=== PATIENT | female | born 1955 | race Caucasian/White ===

== ENCOUNTER 2017-03-08 08:38 | Emergency (ER) | payer BC, MEDICARE ==
[~2017-03-08] VITALS: Ht 157.5 cm; Wt 53.2 kg
[~2017-03-08 08:38] MED LIST: ALBU6.7H INH; ALPR.5 PO; ATOR20TA PO; AZIT250T74 PO; CEFU1TAB43 PO; DEMA10TA PO; DIGO0.12 PO; DULE200A INH; DUONI NEB; ECOT81TA2 PO; LISI2.5T55 PO; MAGN400T PO; METO25CR PO; MONT10TA2 PO; PRED20 PO; SPIR25 PO
[2017-03-08 08:42] VITALS: BP 119/68; PULSE 84; RESP 16; TEMP 97.9; O2SAT 94
[2017-03-08] MEDS ORDERED: LISI2.5T3 PO (09:10)
[2017-03-08] MEDS ORDERED: ALBU6.7H INH (09:10)
[2017-03-08] MEDS ORDERED: MAGN400T2 PO (09:10)
[2017-03-08] MEDS ORDERED: SPIR25TA PO (09:10)
[2017-03-08] MEDS ORDERED: PRED1 PO (09:10)
[2017-03-08] MEDS ORDERED: THEO400T2 PO (09:10)
[2017-03-08] MEDS ORDERED: ATOR20TA15 PO (09:10)
[2017-03-08] MEDS ORDERED: DIGO0.12 PO (09:10)
[2017-03-08] MEDS ORDERED: ALPR0.5T3 PO (09:10)
[2017-03-08] MEDS ORDERED: TORS10TA2 PO (09:10)
[2017-03-08] MEDS ORDERED: MONT10TA2 PO (09:10)
[2017-03-08] MEDS ORDERED: METO50TA11 PO (09:10)
[2017-03-08] MEDS ORDERED: DULE100A INH (09:10)
[2017-03-08] MEDS ORDERED: TETANUS/DIPHTHERIA TOXOID ADULT 0.5 ML VIAL IM ONE (09:15)
[2017-03-08] MEDS ORDERED: LIDOCAINE 2%/EPINEPHrine 1:100,000 30ML MDV INFIL ONE (09:15)
--- NOTE | 2017-03-08 09:19 | PD ---
HPI Chief Complaint: Injury Time Seen by Provider: 09:12 Travel History International Travel<30 days: No Contact w/Intl Traveler<30days: No Traveled to known affect area: No History of Present Illness HPI Patient reports attempting to use the restroom this morning when she slipped and fell. Unsure of the exact mechanism. Denies any head trauma. Patient thinks that her right leg extended behind her during the fall. Reports right ankle pain with a right knee laceration. Unable to recall tetanus. Reports that she is able to bear weight. PFSH Past Medical History Hx Anticoagulant Therapy: Yes (asa 81mg) Anemia: Yes Arthritis: Yes (RHEUMATOID) Asthma: No Autoimmune Disease: No Blood Disorders: No Anxiety: Yes Depression: No Heart Rhythm Problems: Yes Cancer: No Cardiomyopathy: Yes (VIRAL) Cardiovascular Problems: Yes (htn on meds, [place] x 4 , pacemaker & defib) High Cholesterol: Yes Chemotherapy: No Chest Pain: Yes Congestive Heart Failure: Yes COPD: Yes (2L NC) Coronary Artery Disease: Yes Diabetes: No Diminished Hearing: No Endocrine: No Gastrointestinal Disorders: Yes GERD: No Glaucoma: No Genitourinary: Yes Hepatitis: No Hiatal Hernia: No Heparin Induced Thrombocytopen: No Hypertension: Yes Immune Disorder: Yes Implanted Vascular Access Dvce: No Kidney Stones: No Medical other: Yes (ANEMIC, ARTHRITIS) Musculoskeletal: Yes Neurologic: No Psychiatric: Yes Reproductive: No Respiratory: Yes (copd and oxgen prn at home) Immunizations Current: Yes Myocardial Infarction: No Radiation Therapy: No Renal Failure: No Sickle Cell Disease: No Sleep Apnea: No Thyroid Disease: No Ulcer: No Tetanus Vaccination: Unknown ?: Not Menopausal: Yes Dilation and Curettage (D&C): Yes (X 12) Past Surgical History Abdominal Surgery: Yes (APPENDECTOMY 1972 , CHOLECYSTECTOMY 2003) AICD: Yes Appendectomy: Yes (1972) Arteriovenous Shunt: No Cardiac Surgery: No Cholecystectomy: Yes (2003) Ear Surgery: No Endocrine Surgery: No Eye Surgery: No Genitourinary Surgery: No Gynecologic Surgery: Yes (MULTIPLE D&C) Insulin Pump: No Joint Replacement: No Neurologic Surgery: No Oral Surgery: Yes (THROAT POLYPECTOMY 1995) Pacemaker: No Thoracic Surgery: No Tonsillectomy: Yes (1959) Other Surgery: Yes (POLYPS REMOVED FROM THROAT) Social History Alcohol Use: No Tobacco Use: Yes (QUIT 2006 ANS RESTARTED 2 WEEKS AGO) Substance Use: No Allergies-Medications (Allergen,Severity, Reaction): Coded Allergies: Codeine (Verified Allergy, Severe, SWELLING/VOMITING, 03/08/17) hives Minocin (Verified Allergy, Severe, 03/08/17) states she broke out in a rash after taking tetracycline Reported Meds & Prescriptions Reported Meds & Active Scripts Active Reported Proventil Hfa 6.7 GM Inh (Albuterol Sulfate) 90 Mcg/Act Aer 2 Puff INH Q6H PRN Alprazolam 0.5 Mg Tab 0.5 Mg PO Q8H PRN Dulera 120 Act Inh (Mometasone-Formoterol 120 Act Inh) 100-5 Mcg/Act Inh 2 Puff INH BID Lisinopril 2.5 Mg Tab 2.5 Mg PO DAILY Atorvastatin (Atorvastatin Calcium) 20 Mg Tab 20 Mg PO HS Magnesium Oxide 400 Mg Tab 400 Mg PO BID Singulair (Montelukast Sodium) 10 Mg Tab 10 Mg PO HS Torsemide 10 Mg Tab 10 Mg PO DAILY Theophylline ER 24 HR (Theophylline) 400 Mg Tab 200 Mg PO DAILY Spironolactone 25 Mg Tab 12.5 Mg PO DAILY Metoprolol Succinate ER 24 HR (Metoprolol Succinate) 50 Mg Tab 50 Mg PO BID Digoxin 0.125 Mg Tab 0.125 Mg PO TUWEFRSASU Prednisone 1 Mg Tab 1 Mg PO DAILY Review of Systems General / Constitutional: No: Fever Eyes: No: Visual changes HENT: No: Headaches Cardiovascular: No: Chest Pain or Discomfort Respiratory: No: Shortness of Breath Gastrointestinal: No: Abdominal Pain Genitourinary: No: Dysuria Musculoskeletal: No: Pain Skin: No Rash Neurologic: No: Weakness Psychiatric: No: Depression Endocrine: No: Polydipsia Hematologic/Lymphatic: No: Easy Bruising Physical Exam Narrative GENERAL: Well-nourished, well-developed patient. SKIN: Focused skin assessment warm/dry. HEAD: Normocephalic. EYES: No scleral icterus. No injection or drainage. NECK: Supple, trachea midline. No JVD or lymphadenopathy. CARDIOVASCULAR: Regular rate and rhythm without murmurs, gallops, or rubs. RESPIRATORY: Breath sounds equal bilaterally. No accessory muscle use. GASTROINTESTINAL: Abdomen soft, non-tender, nondistended. MUSCULOSKELETAL: No cyanosis, or edema. BACK: Nontender without obvious deformity. No CVA tenderness. Examination of the right ankle reveals no pain with flexion extension she does have pain to the lateral malleolus with manipulation. There is some mild swelling in this area. No ecchymosis. Examination of the right knee reveals a 4.5 similar molina shape laceration/ avulsion over the patella. No pain on flexion or extension Data Data Last Documented VS Vital Signs Date Time Temp Pulse Resp B/P Pulse Ox O2 Delivery O2 Flow Rate FiO2 03/08/17 08:51 16 94 Room Air 03/08/17 08:42 97.9 84 119/68 Orders Ankle, Limited (Ap&Lat) (03/08/17 ) Knee, Ltd (1 Or 2vws) (03/08/17 ) Tetanus/Diphtheria Tox Adult (Tetanus/Di (03/08/17 09:15) Lidocai-Epi 2%-1:100,000 Inj (Xylocaine- (03/08/17 09:15) MDM Medical Decision Making Medical Screen Exam Complete: Yes Emergency Medical Condition: Yes Differential Diagnosis Right knee laceration, right ankle fracture, right ankle sprain, right knee sprain, fall risk Narrative Course Assessment and plan discussed with patient at bedside. Last 72 hours Impressions Knee X-Ray 03/08/17 0000 Signed Impressions: Service Date/Time: Wednesday, March 08, 2017 09:29 - CONCLUSION: Unremarkable limited examination of the right knee. There is some widening of the proximal fibular metaphysis could be an old area of fibrous dysplasia or healed fracture. Rolando Osuna MD Ankle X-Ray 03/08/17 0000 Signed Impressions: Service Date/Time: Wednesday, March 08, 2017 09:32 - CONCLUSION: Unremarkable limited examination of the right. Rolando Osuna MD Observed ambulating prior to discharge Procedures Procedure Narrative LACERATION LOCATION: Right knee LENGTH: 4.5 cm NUMBER OF STITCHES/PIPO: 6 interrupted REPAIR: The area of the laceration was prepped with Betadine and sterilely draped. The laceration was infiltrated with 2% lidocaine with epinephrine. The wound was copiously irrigated and explored without evidence of foreign body , tendon injury or neurovascular injury. The wound was closed using 6-0 Prolene. This was a single layer repair. A sterile dressing was applied. The patient was advised to keep the dressing clean and dry. Patient tolerated the procedure well. Diagnosis Primary Impression: Laceration of right knee Qualified Code: S81.011A - Laceration of right knee, initial encounter Additional Impression: Right ankle strain Qualified Code: S96.911A - Right ankle strain, initial encounter Patient Instructions: General Instructions Additional Instructions: Antibacterial soap and water 2 times a day with anabolic ointment. Encouraged to avoid deep squats or knee bends. Suture removal 12-14 days with PCP. Tylenol for pain. Med/Other Pt SpecificInfo: No Meds Exist/No RX given, Wound Care Disposition: DISCHARGE HOME Condition: Good David Mast MD Mar 08, 2017 09:19
--- NOTE | 2017-03-08 09:50 | RADRPT ---
EXAM DATE/TIME: 03/08/2017 09:32 [facility] COMPARISON: No previous studies available for comparison. INDICATIONS : Fell today, right ankle pain MEDICAL HISTORY : Chronic obstructive pulmonary disease. Myocardial infarction. SURGICAL HISTORY : Pacemaker. ENCOUNTER: Initial ACUITY: 1 day PAIN SCORE: 6/10 LOCATION: Right ankle FINDINGS: Two view examination was performed of the right ankle. The bony structures are in normal alignment. No evidence of fracture, dislocation, or soft tissue swelling. No radiopaque foreign bodies are see n. Bony mineralization is normal. CONCLUSION: Unremarkable limited examination of the right. Rolando Osuna MD on March 08, 2017 at 9:49 Board Certified Radiologist. This report was verified electronically.
--- NOTE | 2017-03-08 09:51 | RADRPT ---
EXAM DATE/TIME: 03/08/2017 09:29 [facility] COMPARISON: No previous studies available for comparison. INDICATIONS : Fell , right knee pain MEDICAL HISTORY : Chronic obstructive pulmonary disease. Myocardial infarction. SURGICAL HISTORY : Pacemaker. ENCOUNTER: Initial ACUITY: 1 day PAIN SCORE: 6/10 LOCATION: Right knee FINDINGS: Two view examination of the right knee demonstrates no evidence of fracture or dislocation. Bony min eralization is normal. The suprapatellar soft tissues have a normal configuration. CONCLUSION: Unremarkable limited examination of the right knee. There is some widening of the proximal fibular m etaphysis could be an old area of fibrous dysplasia or healed fracture. Rolando Osuna MD on March 08, 2017 at 9:49 Board Certified Radiologist. This report was verified electronically.
== END 2017-03-08 10:32 | disposition home or self-care (01) ==
LOC: PHEFT 08:38
DX: S81.011A Laceration without foreign body, right knee, initial encounter (principal); S96.911A Strain of unspecified muscle and tendon at ankle and foot level, right foot, initial encounter; W01.0XXA Fall on same level from slipping, tripping and stumbling without subsequent striking against object, initial encounter; Z23 Encounter for immunization
CPT/HCPCS: 12002; 73560; 73600; 90471; 90714

== ENCOUNTER 2017-03-22 21:38 | Emergency (ER) | payer BC, MEDICARE ==
[~2017-03-22] VITALS: Ht 160 cm; Wt 53.3 kg
[~2017-03-22 21:38] MED LIST changes: -ALPR.5 PO; +ALPR0.5T3 PO; -ATOR20TA PO; +ATOR20TA15 PO; -AZIT250T74 PO; -CEFU1TAB43 PO; -DEMA10TA PO; +DULE100A INH; -DULE200A INH; -DUONI NEB; -ECOT81TA2 PO; +LISI2.5T3 PO; -LISI2.5T55 PO; -MAGN400T PO; +MAGN400T2 PO; -METO25CR PO; +METO50TA11 PO; +PRED1 PO; -PRED20 PO; -SPIR25 PO; +SPIR25TA PO; +THEO400T2 PO; +TORS10TA2 PO
[2017-03-22 21:47] VITALS: BP 122/58; PULSE 66; RESP 18; TEMP 98; O2SAT 97
--- NOTE | 2017-03-22 22:22 | PD ---
HPI Chief Complaint: Wound/Suture/Staple Re-Check Time Seen by Provider: 22:00 Travel History International Travel<30 days: No Contact w/Intl Traveler<30days: No Traveled to known affect area: No History of Present Illness HPI 61-year-old female presents to the emergency room for evaluation of the right knee laceration and suture removal. Patient cut her knee 14 days ago and had 6 sutures placed at that time. States since then it has been slightly erythematous around the wound. She has had some yellow drainage. Patient reports continued pain. She has been washing it daily with wound cleanser and applying triple antibiotic ointment. She denies fever, chills, nausea, vomiting , and streaking. PFSH Past Medical History Hx Anticoagulant Therapy: Yes (asa 81mg) Anemia: Yes Arthritis: Yes (RHEUMATOID) Asthma: No Autoimmune Disease: No Blood Disorders: No Anxiety: Yes Depression: No Heart Rhythm Problems: Yes Cancer: No Cardiomyopathy: Yes (VIRAL) Cardiovascular Problems: Yes (htn on meds, [place] x 4 , pacemaker & defib) High Cholesterol: Yes Chemotherapy: No Chest Pain: Yes Congestive Heart Failure: Yes COPD: Yes (2L NC) Coronary Artery Disease: Yes Diabetes: No Diminished Hearing: No Endocrine: No Gastrointestinal Disorders: Yes GERD: No Glaucoma: No Genitourinary: Yes Hepatitis: No Hiatal Hernia: No Heparin Induced Thrombocytopen: No Hypertension: Yes Immune Disorder: Yes Implanted Vascular Access Dvce: No Kidney Stones: No Medical other: Yes (ANEMIC, ARTHRITIS) Musculoskeletal: Yes Neurologic: No Psychiatric: Yes Reproductive: No Respiratory: Yes (copd and oxgen prn at home) Immunizations Current: Yes Myocardial Infarction: No Radiation Therapy: No Renal Failure: No Sickle Cell Disease: No Sleep Apnea: No Thyroid Disease: No Ulcer: No ?: Not Menopausal: Yes Dilation and Curettage (D&C): Yes (X 12) Past Surgical History Abdominal Surgery: Yes (APPENDECTOMY 1972 , CHOLECYSTECTOMY 2003) AICD: Yes Appendectomy: Yes (1972) Arteriovenous Shunt: No Cardiac Surgery: No Cholecystectomy: Yes (2003) Ear Surgery: No Endocrine Surgery: No Eye Surgery: No Genitourinary Surgery: No Gynecologic Surgery: Yes (MULTIPLE D&C) Insulin Pump: No Joint Replacement: No Neurologic Surgery: No Oral Surgery: Yes (THROAT POLYPECTOMY 1995) Pacemaker: No Thoracic Surgery: No Tonsillectomy: Yes (1959) Other Surgery: Yes (POLYPS REMOVED FROM THROAT) Social History Alcohol Use: No Tobacco Use: Yes (QUIT 2006 ANS RESTARTED 2 WEEKS AGO) Substance Use: No Allergies-Medications (Allergen,Severity, Reaction): Coded Allergies: Codeine (Verified Allergy, Severe, SWELLING/VOMITING, 03/08/17) hives Minocin (Verified Allergy, Severe, 03/08/17) states she broke out in a rash after taking tetracycline Reported Meds & Prescriptions Reported Meds & Active Scripts Active Reported Proventil Hfa 6.7 GM Inh (Albuterol Sulfate) 90 Mcg/Act Aer 2 Puff INH Q6H PRN Alprazolam 0.5 Mg Tab 0.5 Mg PO Q8H PRN Dulera 120 Act Inh (Mometasone-Formoterol 120 Act Inh) 100-5 Mcg/Act Inh 2 Puff INH BID Lisinopril 2.5 Mg Tab 2.5 Mg PO DAILY Atorvastatin (Atorvastatin Calcium) 20 Mg Tab 20 Mg PO HS Magnesium Oxide 400 Mg Tab 400 Mg PO BID Singulair (Montelukast Sodium) 10 Mg Tab 10 Mg PO HS Torsemide 10 Mg Tab 10 Mg PO DAILY Theophylline ER 24 HR (Theophylline) 400 Mg Tab 200 Mg PO DAILY Spironolactone 25 Mg Tab 12.5 Mg PO DAILY Metoprolol Succinate ER 24 HR (Metoprolol Succinate) 50 Mg Tab 50 Mg PO BID Digoxin 0.125 Mg Tab 0.125 Mg PO TUWEFRSASU Prednisone 1 Mg Tab 1 Mg PO DAILY Review of Systems Except as stated in HPI: all other systems reviewed are Neg Physical Exam Narrative GENERAL: Well-nourished, well-developed female in no acute distress. Afebrile. Ambulatory. SKIN: Focused skin assessment warm/dry. There is a slightly dehisced 3 cm laceration on the right patella with 6 intact sutures and surrounding erythema. No lymphangitis. There is impetiginization wound. HEAD: Normocephalic. EYES: No scleral icterus. No injection or drainage. NECK: Supple, trachea midline. No JVD or lymphadenopathy. CARDIOVASCULAR: Regular rate and rhythm without murmurs, gallops, or rubs. RESPIRATORY: Breath sounds equal bilaterally. No accessory muscle use. MUSCULOSKELETAL: No cyanosis, or edema. Full range of motion of the knee. Data Data Last Documented VS Vital Signs Date Time Temp Pulse Resp B/P Pulse Ox O2 Delivery O2 Flow Rate FiO2 03/22/17 21:47 98.0 66 18 122/58 97 MDM Medical Decision Making Medical Screen Exam Complete: Yes Emergency Medical Condition: Yes Medical Record Reviewed: Yes Differential Diagnosis Wound dehiscence, impetigo, laceration, suture removal Narrative Course 61-year-old female presents to the emergency room for suture removal and wound check. Patient had 6 sutures placed in her right knee 2 weeks ago. Physical exam reveals slight dehiscence of the wound with impetiginization. There is mild surrounding erythema but no significant drainage. Sutures were removed without difficulty. Patient will be treated for impetigo with mupirocin. She will also be discharged with a prescription for clindamycin and told only to start it if the mupirocin is not improving her symptoms. Told to follow up with the primary care physician or return for worsening symptoms. She understands and agrees to plan. Diagnosis Primary Impression: Visit for suture removal Additional Impression: Impetigo Referrals: Primary Care Physician Patient Instructions: General Instructions, Impetigo (ED), Stitches Removal (ED ) Additional Instructions: Keep wound clean and dry until completely healed. Apply ointment as directed. If after 3-4 days, wound is still red and has yellow crust, start oral antibiotics. Take ibuprofen with food as directed, as needed for pain. Follow-up with a primary care physician. Return to the emergency room for worsening symptoms. Med/Other Pt SpecificInfo: Prescription(s) given Scripts Clindamycin 300 Mg [id number] Mg PO Q6H 7 Days Ref 0 Prov:Jeromy Batista MD 03/22/17 Mupirocin Topical 2 % Oint1 Applic TOPICAL BID #1 TUBE Ref 0 Prov:Jeromy Batista MD 03/22/17 Disposition: 01 DISCHARGE HOME Condition: Stable Yumi Curry Mar 22, 2017 22:22
[2017-03-22] MEDS ORDERED: CLIN1CAP6 PO (22:24)
[2017-03-22] MEDS ORDERED: MUPI2OIN TOPICAL (22:24)
== END 2017-03-22 22:31 | disposition home or self-care (01) ==
LOC: PHEFT 21:38
DX: Z48.02 Encounter for removal of sutures (principal); L01.00 Impetigo, unspecified; I42.9 Cardiomyopathy, unspecified; I50.9 Heart failure, unspecified; J44.9 Chronic obstructive pulmonary disease, unspecified; I11.0 Hypertensive heart disease with heart failure; E78.00 Pure hypercholesterolemia, unspecified; Z95.810 Presence of automatic (implantable) cardiac defibrillator; Z72.0 Tobacco use
CPT/HCPCS: 99284